=== PATIENT | female | born 1955 | race Caucasian/White ===

== ENCOUNTER → 2016-09-21 | Outpatient (CLI) | payer BC | LOC: RT 13:22 | DX: R94.31 Abnormal electrocardiogram [ECG] [EKG] (principal); G40.909 Epilepsy, unspecified, not intractable, without status epilepticus ==

== ENCOUNTER → 2016-10-06 | Outpatient (CLI) | payer BC ==
--- NOTE | 2016-10-06 19:26 | RADIOLOGY REPORT PS360 ---
LUMBAR PUNCTURE under fluoroscopy 2 VIEW L-SPINE images HISTORY MS COMPARISON No prior studies at this facility Procedure/findings ---2 view L-spine Patient was brought room to and placed on table. Lateral view of the lumbar spine was performed and shows grade 1 spondylo-listhesis of L4 on L5. It also shows With mild disc space narrowing L5/S1 L4/5 and posterior L3/4. Patient was in place in the frontal projection an image obtained after needle placed. ----Lumbar puncture Lumbar puncture is performed at the L4/5 level as it appear to be most accessible on fluoroscopic evaluation Following sterile preparation and local skin anesthesia as well as deep or anesthetic, a 20-gauge needle was directed between the L5 and L4 spinous processes and oblique fashion towards the spinal canal. The CSF was readily encountered. Lumbar puncture performed without difficulty. A a generous amount of CSF was withdrawn over 20-20 5 cc submitted for laboratory total. Patient tolerated procedure well with the patient Lay flat and hydrated for least 15-20 minutes after the procedure prior to discharge. Reported minor frontal headache but not felt to be of significance IMPRESSION 1 ...Lumbar puncture performed under fluoroscopy without difficulty. 20 to 25 cc CSF submitted for requested lab 2. PA and lateral view lumbar spine obtained prior to this procedure noted grade 1 spinal listhesis of L4 on L5, most likely degenerative listhesis. Degenerative disc and facet changes most notable at L4/5 and L5/S1.
[2016-10-08 18:40] LABS: CSF APPEARANCE CLEAR; CSF POLY 0 %
[2016-10-14 17:24] LABS: HERPES SIMPLEX DNA PROBE NEGATIVE (NOT DETECTD)
[2016-10-14 17:25] LABS: GROUP B ANTIGEN DECTECTION NEGATIVE; H. INFLUNZAE ANTIGEN DECTECTIO NEGATIVE; N. MENINGITIDIS AG GROUP A NEGATIVE; STREPTOCOCCUS ANTIGEN NEGATIVE
== END ==
LOC: LAB 12:31 → RAD 12:31
PROVIDERS: Internal Medicine Adolescent Medicine
PROC: 009U3ZX Drainage of Spinal Canal, Percutaneous Approach, Diagnostic (ICD-10-PCS; principal; 2016-10-06)
DX: R20.2 Paresthesia of skin (principal); B00.9 Herpesviral infection, unspecified